=== PATIENT | female | born 1995 | race Caucasian/White ===

== ENCOUNTER → 2024-07-01 07:40 | Outpatient (CLI) | payer OTHER, MEDICAID, SELFPAY ==
--- NOTE | 2024-07-01 07:43 | DI.US.S_ITS ---
PROCEDURE: US OB >= 14 WEEKS FETUS INDICATIONS: ANATOMY SCAN OUTSIDE/PRIOR DATING DATA: Last menstrual period (LMP): 02/09/2024. LMP-based estimated date of delivery (DUC): 11/15/2024. The calculations are made using the clinical DUC of 11/15/2024. TECHNIQUE: Real-time scanning was performed of the fetus, with image documentation and biometric measurements. Endovaginal scanning: Not performed COMPARISON: None. FINDINGS: General: A single living intrauterine gestation is present. Presentation: Breech. Placenta: Placental position is anterior, without previa. Amniotic fluid index: 17.7 cm, normal range is 5-24 cm. Single deepest vertical pocket is 6.8 cm. heart rate: 150 beats per minute. Maternal cervical canal: 4.5 cm long. Normal lower limit is 2.5 cm. biometrics: Biparietal diameter: 4.7 cm, 20 weeks 2 days Head circumference: 17.2 cm, 19 weeks 5 days Abdominal circumference: 15.3 cm, 20 weeks 4 days Femur length: 3.3 cm, 20 weeks 1 day Clinically estimated gestational age: 20 weeks 3 days Composite gestational age from present scan: 20 weeks 1 day Estimated weight and percentile: 345 g, 38th percentile. Anatomic survey: Neuro: Ventricles are non-dilated at less than 10 mm. Cisterna magna is normal at 3-11 mm. Cerebellum is normal in size and morphology. Nuchal skin fold: Normal at less than 6 mm between 14-21 weeks gestational age. Face: Nose and lips, facial profile are normal. Spine: No evidence for spina bifida. Heart: 4-chambered heart is present, with normal ventricular outflow tracts. Left ventricle echogenic focus. Diaphragm: Diaphragm is intact. Stomach: Left-sided stomach is present. Kidneys: No hydronephrosis. Normal is less than 5 mm in 2nd trimester, less than 7 mm in 3rd trimester. Cord: 3-vessel cord has orthotopic insertion. Bladder: Normal in size. Extremities: All 4 extremities identified. IMPRESSION: 1. Barker living intrauterine at 20 weeks 1 day based on today's ultrasound. Concordant with clinical dating. Fetus is in the 38th percentile for weight. 2. Normal placenta and amniotic fluid. 3. Left ventricle echogenic focus. In the absence of other abnormalities this is likely of no clinical significance. Recommend clinical correlation. Otherwise normal and complete anatomic survey. We strive to produce accurate, complete, and clear reports of imaging services. To assist us in improving patient care, this report was composed using standard report templates and voice recognition software. Therefore, it may contain abnormal punctuation, insertions and/or omissions. Occasional wrong-word or sound-alike substitutions may occur. Though we review the report and make efforts to correct it, we do recommend that the report be read carefully in proper context to recognize any text inaccuracies. Dictated by: Leoncio Szymanski M.D. on 07/01/2024 at 17:25 Approved by: Leoncio Szymanski M.D. on 07/01/2024 at 17:29
== END ==
LOC: US 07:42
PROVIDERS: Referring Provider Nurse Practitioner Obstetrics & Gynecology; Visit Provider Nurse Practitioner Obstetrics & Gynecology
DX: Z34.92 Encounter for supervision of normal pregnancy, unspecified, second trimester (principal); Z3A.20 20 weeks gestation of pregnancy
CPT/HCPCS: 76811

== ENCOUNTER 2024-07-20 18:56 | Outpatient (CLI) | payer OTHER, MEDICAID, SELFPAY ==
[2024-07-20] MEDS: LACTATED RINGERS 1,000 ML 1000 ML IV (19:12)
[2024-07-20 19:31] LABS: Add Manual Diff / Slide Review NO; Appearance Urine UA CLEAR; Basophils Absolute Auto 0 /uL (0-100); Basophils Percent Auto 0.2 % (0-2); Bilirubin Urine UA NEGATIVE (NEGATIVE); Color Urine UA YELLOW; Eosinophils Absolute Auto 0 /uL (0-450); Eosinophils Percent Auto 0.3 % (2-4); Glucose Urine UA NEGATIVE (Negative); Hematocrit 39.5 % (36-46); Hemoglobin 13.1 g/dL (12.0-16.0); Ketones Urine UA NEGATIVE (NEGATIVE); Leukocyte Esterase Urine UA 1+ (NEGATIVE); Lymphocytes Absolute Auto 2200 /uL (1100-4500); Lymphocytes Percent Auto 20.4 % (25-40); Mean Corpuscular HGB Conc 33.1 % (30-36); Mean Corpuscular Hemoglobin 28.9 PG (26-34); Mean Corpuscular Volume 87.3 fL (80-100); Monocytes Absolute Auto 1100 /uL (0-900); Monocytes Percent Auto 9.9 % (3-14); Neutrophils Absolute Auto 7600 /uL (1500-7000); Neutrophils Percent Auto 69.2 % (50-75); Nitrite Urine UA NEGATIVE (Negative); Occult Blood Urine UA NEGATIVE (Negative); Platelet Count 232 X10^3/uL (150-400); Protein Urine UA NEGATIVE (Negative); Red Blood Cell Count 4.53 X10^6/uL (4.0-5.2); Red Cell Distribution Width 15.6 % (11.6-14.8); Specific Gravity Urine UA <=1.005 (1.000-1.035); Urobilinogen Urine UA 0.2 E.U./dL (0.2)
[2024-07-20 19:32] LABS: Urine Volume 10mL (spun)
[2024-07-20 19:40] LABS: Alanine Aminotransferase 49 IU/L (<35); Albumin 4.4 g/dL (3.5-5.0); Albumin Globulin Ratio 1.3 (1.0-2.8); Alkaline Phosphatase 80 U/L (38-126); Aspartate Aminotransferase 58 IU/L (14-36); BUN Creatinine Ratio 8.6 (6-22); Bilirubin Total 0.4 mg/dL (0.2-1.3); Blood Urea Nitrogen 6 mg/dL (7-17); Calcium 8.8 mg/dL (8.4-10.2); Carbon Dioxide 21 mmol/L (22-32); Chloride 105 mmol/L (98-107); Estimated Glomerular Filt Rate > 60 mL/min (>60); Globulin 3.4 g/dL (1.7-4.1); Glucose 69 mg/dL (70-100); HEMOLYSIS < 15 (0-50); Potassium 3.3 mmol/L (3.4-5.1); Sodium 135 mmol/L (137-145); Total Protein 7.8 g/dL (6.3-8.2)
[2024-07-20 19:41] LABS: Bacteria Urine Moderate (10-30); RBC Urine None Seen (0-5/HPF); Squamous Epithelial Cell Urine 1-5 /HPF (0-5/HPF); WBC Urine 0-1/HPF (0-5/HPF)
[2024-07-20 19:42] LABS: Culture Indicated Urine Specimen Cultured
--- NOTE | 2024-07-20 19:51 | PM.OBTRLD ---
Visit Information Visit Information Date of evaluation: 07/20/24 Primary OB Provider: Rosetta Felipe On-call OB Provider: Rosetta Felipe Reason for Evaluation: Yes other Comments/Additional reasons for admission: 28YO @ 23wks 1 day by LMP concordant with 8wk US presents for evaluation of diarrhea x 36 hours. Food and fluid are immediately coming out the other end and she is feeling weak and tired and worried about how her baby is doing. No vomiting or fever. No one else around her has the same sx and she thinks it is food poisoning. Uncomplicated care with CNMs. Vital Signs Vital Signs: BP 114/68, HR 83, RR 18, T 36.5F Temporal [facility] Surgical History (Updated 07/24/24 @ 14:36 by Rosetta Felipe CNM) H/O wisdom tooth extraction History of repair of anterior cruciate ligament of left knee Hx of tonsillectomy Review of Systems Constitutional Constitutional: Reports lethargy and Reports weakness Cardiovascular Cardiovascular: Reports system reviewed and no additional complaints, except as documented Respiratory Respiratory: Reports system reviewed and no additional complaints, except as documented Gastrointestinal Gastrointestinal: Reports as per HPI and Reports loose stools Neurologic Neurologic: Reports weakness Exam Vital Signs (past 8 hours): see above Const General: cooperative, well developed and well groomed Nutritional Appearance: average body habitus and well nourished Orientation: alert, awake and oriented x3 Resp Effort & Inspection: normal respiratory effort and able to speak in complete sentences Cardio Rate: regular rate Rhythm: regular rhythm Objective Labs 07/20/24 19:08 07/20/24 19:08 Labs: Laboratory Results - last 24 hr 07/20/24 19:08 WBC 11.0 RBC 4.53 Hgb 13.1 Hct 39.5 MCV 87.3 MCH 28.9 MCHC 33.1 RDW 15.6 H Plt Count 232 Neut % (Auto) 69.2 Lymph % (Auto) 20.4 L [place] % (Auto) 9.9 Eos % (Auto) 0.3 L Baso % (Auto) 0.2 Neut # (Auto) 7600 H Lymph # (Auto) 2200 [place] # (Auto) 1100 H Eos # (Auto) 0 Baso # (Auto) 0 Sodium 135 L Potassium 3.3 L Chloride 105 Carbon Dioxide 21 L BUN 6 L Creatinine 0.70 Estimated GFR > 60 BUN/Creatinine Ratio 8.6 Glucose 69 L Calcium 8.8 Total Bilirubin 0.4 AST 58 H ALT 49 H Alkaline Phosphatase 80 Total Protein 7.8 Albumin 4.4 Globulin 3.4 Albumin/Globulin Ratio 1.3 Urine Color Yellow Urine Appearance Clear Urine pH 6.0 Ur Specific Bennett <=1.005 Urine Protein Negative Urine Glucose (UA) Negative Urine Ketones Negative Urine Occult Blood Negative Urine Nitrate Negative Urine Bilirubin Negative Urine Urobilinogen 0.2 Ur Leukocyte Esterase 1+ H Urine RBC None seen Urine WBC 0-1/hpf Ur Squamous Epith Cells 1-5 /hpf Urine Bacteria Moderate (10-30) H Ur Culture Indicated? Specimen cultured Vol Urine Centrifuged 10ml (spun) Evaluation Evaluation Baseline heart rate: 140 Comments: no contractions membranes intact Diagnosis, Plan/Disposition Final Diagnosis (1) Diarrhea of presumed infectious origin: Status: Acute Plan/Disposition Plan: Reassurance of normal FHR and labs given. No concern for acute dehydration. Will repeat UA and CMP at next PN visit. OB Disposition: home
== END 2024-07-20 20:23 | disposition home or self-care (01) ==
LOC: LABOR 20:12 → OB 07-22 11:44
PROVIDERS: Referring Provider Nurse Practitioner Obstetrics & Gynecology; Visit Provider Nurse Practitioner Obstetrics & Gynecology
DX: O26.892 Other specified pregnancy related conditions, second trimester (principal); R19.7 Diarrhea, unspecified; Z3A.23 23 weeks gestation of pregnancy
CPT/HCPCS: 80053; 81001; 85025; 87086; 96360; G0378; G0379

== ENCOUNTER 2024-11-10 19:36 | Outpatient (CLI) | payer OTHER, SELFPAY ==
--- NOTE | 2024-11-10 19:49 | P.TNLD_ITS ---
Visit Information Visit Information Date of evaluation: 11/10/24 Comments/Additional reasons for admission: 29YO @ 39wks 2days here for evaluation of ROM. Noticed leaking clear fluid at 1720 and has continued to notice large amounts since then. Contractions started on the drive up from [place], but are mild and irregular. +FM. No vaginal bleeding. Uncomplicated care with CNMs. Planning a no intervention . Supportive partner, Will is at her side. Vital Signs Vital Signs: BP 133/76, HR 85bpm, T 36.6C Temporal PFSH Surgical History (Updated 07/24/24 @ 14:36 by Rosetta Felipe CNM) H/O wisdom tooth extraction History of repair of anterior cruciate ligament of left knee Hx of tonsillectomy Social History (Updated 11/10/24 @ 20:30 by Rosetta Felipe CNM) marital status: unmarried,living together household members: significant other lives independently: Yes housing: house education level: college occupational status: employed Review of Systems Review of Systems ROS: Yes All systems reviewed with the patient and are negative except as otherwise documented Exam Vital Signs (past 8 hours): see above Presentation: vertex Evaluation Evaluation Baseline heart rate: 140 Variability: Moderate (11-25) monitor accelerations: Present Monitor Decelerations: Absent Contraction Frequency (minutes): 0 Category of Tracing: Reactive Cervical dilation (cm): 1.5 Cervical effacement (%): 75 station: -2 Comments: gross SROM noted Diagnosis, Plan/Disposition Final Diagnosis (1) premature rupture of membranes: Status: Acute Plan/Disposition Plan: Counseled on term PROM and options for active vs. expectant management of labor. Sherice elected expectant management and is planning to stay the night at the [facility]. Also counseled her that [facility] L&D is currently on divert and transfer of care is a possibility. She declines to transfer to [facility] with her CNM and is aware that transfer to [facility] or another hospital would entail transferring care to an alternate provider. Anticipatory guidance given for PROM. Encouraged rest. Reviewed reasons to return or call sooner. Will call patient when a labor room is available.
[2024-11-10 20:26] VITALS: BP 133/76; PULSE 85; RESP 17; TEMP 36.6
== END 2024-11-10 20:30 | disposition home or self-care (01) ==
LOC: LABOR 19:41 → OB 11-11 11:08
PROVIDERS: Referring Provider Nurse Practitioner Obstetrics & Gynecology; Visit Provider Nurse Practitioner Obstetrics & Gynecology
DX: O42.92 Full-term premature rupture of membranes, unspecified as to length of time between rupture and onset of labor (principal); Z3A.39 39 weeks gestation of pregnancy
CPT/HCPCS: 59025; G0378; G0379

== ENCOUNTER 2024-11-11 05:52 | Inpatient (IN) | payer OTHER, SELFPAY ==
[2024-11-11 06:30] VITALS: BP 117/60
--- NOTE | 2024-11-11 06:30 | P.HPOB_ITS ---
OB HPI Date/Time Date of admission: 11/11/24 Date Patient Seen: 11/11/24 Time Patient Seen: 06:30 History of Present Condition Chief complaint: labor : 1 Para: 0 Estimated Date of Delivery: 11/15/24 Estimated Gestational Age (weeks): 39.3 Narrative: Sherice Franco is a 29 year old female @ 39wks 3days by LMP concordant with 8wk US presents for labor admission s/p PROM. Leaking clear fluid since 1720 last night. Was evaluated in triage and elected expectant management of PROM. Was able to get some sleep at [facility] until 0200 when contractions became stronger. Now breathing through moderate contractions every 6-7 minutes. Small bloody discharge throughout the night. Uncomplicated care with CNMs. Planning low intervention with hypnobirthing techniques. Partner, Will, is supportive at her side. History of Present care: good care, initiated at week # (8), number of visits (9) and pounds weight gain (44) Dating criteria: LMP confirmed by 1st trimester US Ultrasounds: normal mid trimester US Preadmission Labs Blood type: A (+) positive -: Antibody screen: negative, GBS status: negative, HBsAG: negative, HIV: negative and RPR/VDLR: negative -: Chlamydia screen: not detected and Gonorrhea screen: not detected -: Rubella: immune and Varicella: immune HCT: 34.7 HCAB: negative Cell-free DNA: Negative x3 1 hr GTT: 7 Evaluation Evaluation Baseline heart rate: 140 Variability: Moderate (11-25) monitor accelerations: Present Monitor Decelerations: Variable Contraction Frequency (minutes): 7 Uterine Contraction Intensity: Mild Status: Category ll Dilation (cm): 4 Effacement (%): 90 Dilation: 3-4 cm Effacement: >/=80% station: -2 Position of cervix: posterior Consistency: soft Shannon score: 8 PFSH Surgical History H/O wisdom tooth extraction History of repair of anterior cruciate ligament of left knee Hx of tonsillectomy Social History marital status: unmarried,living together household members: significant other lives independently: Yes housing: house education level: college occupational status: employed Smoking Status: Never smoker Meds Home Medications and Allergies Home Medications Medication Instructions Recorded Confirmed Type 1 tab PO DAILY 11/10/24 11/11/24 History Allergies Allergy/AdvReac Type Severity Reaction Status Date / Time codeine AdvReac Unknown Vomiting Verified 11/10/24 21:21 Review of Systems Review of Systems ROS: Yes All systems reviewed with the patient and are negative except as otherwise documented OB Exam Vital signs Blood Pressure: 117/60 Pulse Rate: 76 Respiratory Rate: 17 Temperature: 98.6 F Resp Effort & Inspection: normal respiratory effort and able to speak in complete sentences Auscultation: clear to auscultation bilaterally Cardio Rate: regular rate Rhythm: regular rhythm Heart Sounds: S1 normal and S2 normal Presentation: vertex Objective Labs 11/11/24 07:00 Assessment and Plan Assessment and Plan Assessment and Plan narrative: A: Term nullipara Early Labor PROM x 13 hours without sx of infection Antibiotics not indicated Cat II FHR- overall reassuring P: Admit, routine labor orders. Continue expectant management of PROM. Labor support PRN. Reassess in 4 hours or sooner, PRN. Time-Based Coding :: [TOTAL MINUTES] spent with patient and on the chart (including review of chart, obtaining history, exam, reviewing outside data, placing orders, documenting exam and treatment plan, and counseling patient) on [DATE].
[2024-11-11 06:44] VITALS: BP 117/60; PULSE 76; RESP 17; TEMP 37
[2024-11-11 07:33] LABS: Add Manual Diff / Slide Review NO; Basophils Absolute Auto 0 /uL (0-100); Basophils Percent Auto 0.1 % (0-2); Eosinophils Absolute Auto 100 /uL (0-450); Eosinophils Percent Auto 0.6 % (2-4); Hematocrit 33.8 % (36-46); Hemoglobin 11.3 g/dL (12.0-16.0); Lymphocytes Absolute Auto 3300 /uL (1100-4500); Lymphocytes Percent Auto 19.7 % (25-40); Mean Corpuscular HGB Conc 33.3 % (30-36); Mean Corpuscular Hemoglobin 28.9 PG (26-34); Mean Corpuscular Volume 86.8 fL (80-100); Monocytes Absolute Auto 900 /uL (0-900); Monocytes Percent Auto 5.2 % (3-14); Neutrophils Absolute Auto 12500 /uL (1500-7000); Neutrophils Percent Auto 74.4 % (50-75); Platelet Count 226 X10^3/uL (150-400); Red Cell Distribution Width 13.9 % (11.6-14.8); White Blood Cell Count 16.8 X10^3/uL (4.5-11.0)
--- NOTE | 2024-11-11 10:39 | PM.OBPNLAB ---
Date/Time Date Patient Seen: 11/11/24 Time Patient Seen: 10:15 Pain Control Pain control: tolerating well Comments: Sherice is in the shower now; tried the tub and got some rest earlier. Contractions are more intense when she's standing and moving versus lying down or resting. Feels that she is coping well. VS: 121/74, 73 bpm, 97.6 F Pelvic Exam Dilation (cm): 4 Effacement (%): 100 station: 0 Amniotic membrane status: Ruptured (x 17 hours, clear fluid) Comments: Cervix is soft & mid-position Contractions Contraction pattern: Irregular Contraction intensity: Moderate Status status: Category ll Comments: Intermittent auscultation: 130 bpm, no increases or decreases noted. Assessment and Plan Comments: 29 year old at 39w3d by LMP GBS neg PROM, afebrile Early labor FHR reassuring by IA Recommend nipple stimulation Review little cervical change in dilation, but good change in other aspects, still in early labor Recommend continuing to alter activity and rest, be sure to eat & drink & void. Re-evlauate in 4 hours.
--- NOTE | 2024-11-11 14:01 | PM.OBPNLAB ---
Date/Time Date Patient Seen: 11/11/24 Time Patient Seen: 13:35 Pain Control Pain control: tolerating well (hypnobirthing with EMDR/Reiki) Comments: Sherice is working harder with contractions, feeling some urges to push with contractions but only at the peak. Comfortable on her hands and knees with the CUB, TENS unit on her back, support from Will and RNs. Desires exam now. Pelvic Exam Dilation (cm): 6 Effacement (%): 100 station: 0 Amniotic membrane status: Ruptured (x 20 hours, clear fluid) Comments: Baby rotating from OT to FIONA. Contractions Contraction frequency (min): 2 (1-4) Contraction duration (min): 1 Contraction pattern: Regular Contraction intensity: Moderate Status Comments: Intermittent auscultation Baseline: 135 bpm with regular rhythm Increases and decreases: none noted Assessment and Plan Comments: at 39w3d Active labor FHR reassuring by IA GBS neg Continue intermittent auscultation. Continue laboring with support, recommend frequent position changes. Provided reassurance and guidance about not pushing until her body is actively doing it without her help and can do an exam at that time. Recheck in 4 hours or sooner PRN Anticipate NSVB
--- NOTE | 2024-11-11 17:55 | PM.AN.REGBLK ---
[facility] Pre-procedure PMH/ROS narrative: Healthy 29yr old requesting epidural/cse for labor pain. PSH/Anesthesia history narrative: Tonsillectomy, ACL and [place] teeth ASA Class: II Labs: Hct 33.8 % (36-46) L 11/11/24 07:00 Plt Count 226 X10^3/uL (150-400) 11/11/24 07:00 Medications: Current Medications Generic Name Dose Route Start Last Admin Trade Name Freq PRN Reason Stop Dose Admin Calcium Carbonate 1,000 mg 11/11/24 06:28 Calcium Carbonate 500 Mg Tab PO Q2HR PRN Dyspepsia Carboprost Tromethamine 250 mcg 11/11/24 06:28 Carboprost 250 Mcg/Ml Ampul IM Q90M PRN Bleeding Fentanyl 100 mcg 11/11/24 06:28 Fentanyl 100 Mcg/2 Ml Inj IV Q1H PRN Pain, Severe (7-10) Oxytocin/Lactated Ringer's 30 unit in 500 mls @ 200 mls/hr 11/11/24 06:28 Oxytocin Premix IV CONT PRN Bleeding Protocol Tranexamic Acid 1,000 mg/ 100 mls @ 600 mls/hr 11/11/24 06:28 Sodium Chloride IV NOW PRN Bleeding Oxytocin/Lactated Ringer's 30 unit in 500 mls @ 2 mls/hr 11/11/24 06:30 Oxytocin Premix IV TITRATE LOGAN Protocol 2 MILLIUNIT/MIN Lidocaine HCl 20 ml 11/11/24 06:28 Lidocaine 1% 20 Ml INJ INTRA-OP PRN Post Delivery Methylergonovine Maleate 0.2 mg 11/11/24 06:28 Methylergonovine 0.2 Mg Tablet PO Q6HR PRN Heavy Bleeding Methylergonovine Maleate 0.2 mg 11/11/24 06:28 Methylergonovine 0.2 Mg/Ml Vial IM NOW PRN Bleeding Mineral Oil 30 ml 11/11/24 06:28 Mineral Oil 30 Ml Udc TOP PRN PRN Version Misoprostol 800 mcg 11/11/24 06:28 Misoprostol 200 Mcg Tablet VA NOW PRN Bleeding Misoprostol 400 mcg 11/11/24 06:28 Misoprostol 200 Mcg Tablet SL NOW PRN Bleeding Naloxone HCl 0.2 mg 11/11/24 06:28 Naloxone 0.4 Mg/Ml Vial IV Q2MIN PRN Opiate Reversal Ondansetron HCl 4 mg 11/11/24 06:28 Ondansetron 4 Mg/2 Ml Inj IV Q4HR PRN Nausea And Vomiting Oxytocin 10 unit 11/11/24 06:28 Oxytocin 10 Unit/Ml Vial IM NOW PRN Bleeding Allergies: Allergies Allergy/AdvReac Type Severity Reaction Status Date / Time codeine AdvReac Unknown Vomiting Verified 11/10/24 21:21 Procedure Insertion date: 11/11/24 Insertion time: 17:24 Prep/Local: 1% lidocaine (Chloroprep) Interspace: L3-4 Patient position: sitting Needle: 18 gauge Beceem Communicationstead (27g Tien) Loss of resistance with: saline SARAH at (cm): 6 Catheter placed at SKIN (cm): 14 Catheter in SPACE (cm): 8 Insertion: No CSF, No Blood, No Paresthesia with insertion, No Paresthesia with injection and No Test dose reaction Initial Medications TEST DOSE time: : TEST DOSE: 1.5% lidocaine with epinephrine 1:200k (mL): 3 BOLUS DOSE time: :23 BOLUS DOSE (mL): 1 BOLUS DOSE med: 0.25% bupivacaine Infusion INFUSION: 0.125% bupivacaine and with fentanyl 2 mcg/mL Initial rate (mL/hr): 10 Subsequent interventions: 0.25% bupivicaine 7cc given at 1915 Post-procedure Anesthesia date START: 11/11/24 Anesthesia time START: 17:01 Anesthesia date END: 11/11/24 Anesthesia time END: 19:51 Post-procedure Anesthesia Assessment: Yes CV function: HR/BP stable, Yes Resp function: RR/sat/airway adequate, Yes Post-op hydration adequate, Yes Pain control adequate, Yes Nausea & vomiting absent, Yes Temperature > 36 C and Yes Mental status appropriate
[2024-11-11] MEDS: LACTATED RINGERS 1,000 ML 100 ML IV (17:57)
--- NOTE | 2024-11-11 18:04 | PM.OBPNLAB ---
Date/Time Date Patient Seen: 11/11/24 Time Patient Seen: 18:05 Pain Control Pain control: epidural Comments: CNM assumed care of patient at 1615. Sherice was in the shower, coping well, but considering an epidural. CE was performed at that time 8cm/100%/-1 and Sherice decided to proceed with an epidural. Epidural was placed with adequate pain relief. Now resting in bed, hoping for a nap. Pelvic Exam Dilation (cm): 8 Effacement (%): 100 station: -1 Amniotic membrane status: Ruptured (x 23 hours without sx of infection) Contractions Contraction frequency (min): 5 (2-7) Contraction duration (min): 2 Contraction pattern: Regular Contraction intensity: Moderate Status status: Category ll Heart Rate Baseline: 125 Monitor Accelerations: Present Monitor Decelerations: Early and Variable Monitor Variability: Moderate Assessment and Plan Assessment: active labor Plan: continuous present management Comments: Reassess in 4hours or sooner, PRN. Will consider pitocin augmentation if contractions continue to space.
[2024-11-11] MEDS: OXYTOCIN PREMIX 30 UNIT/500 ML PLAST..BAG IV (18:56)
--- NOTE | 2024-11-11 20:17 | PM.OBPRVD ---
Events: Prolonged Rupture Membrane Labor & Delivery Delivery date: 11/11/24 Delivery Time: 19:51 Cervical ripening method: none Induction method: none Delivery augmentation: pitocin (max dose 3mu/min) Delivery monitor: external FHT and external uterine Route of delivery: L&D Laceration Description: Labial (left, split) Delivery repair: chromic (3.0) Quantitative Blood Loss: 10 Anesthesia Type: Epidural Narrative: Sherice progressed rapidly after pitocin augmentation was initiated (max dose 3mu/min). She felt increased pain in her right hip, received an epidural bolus, was examined and found to be C/C/0. Coaching and strong maternal efforts led to rapid descent of vertex. NSVB of a vigorous baby boy in HAYDEE position. There was a single, loose nuchal cord which was manually reduced. The shoulders were transverse and released with strong maternal effort and McRobert's maneuver. [place] was placed on maternal abdomen for drying and skin to skin. Apgars 6/9. 30 units of pitocin in 500mL LR was started at 250mL/hr for AMTSL. After cessation of pulsation, the cord was double clamped by SNM and cut by FOB. Cord blood sample was collected to hold. Gentle cord traction and a single maternal push led to spontaneous, Schultze delivery of an apparently intact placenta, membranes and 3VC. Fundus immediately firm and bleeding scant. Perineum inspected and intact, superficial left labial laceration was repaired with 3.0 chroic for good approximation and hemostasis. QBL 10mL. Both mother and baby stable and skin to skin as I left the room. Baby 1: Infant gender: Male Presentation: vertex Position: Left Occiput Anterior Placenta delivery description: Spontaneous Cord Vessel Description: 3 Vessels, Nuchal Cord and Loose score (1 min): 6 score (5 min): 9 weight: 2.97 kg Plan for aftercare: Routine care
[2024-11-11] MEDS: DERMOPLAST SPRAY 20% 60 ML 1 SPRAY TOP (20:53)
[2024-11-11] MEDS: WITCH HAZEL/GLYCERIN PADS 1 EACH TOP (20:53)
[2024-11-11] MEDS: LANOLIN OINT 7 GM 1 APPLIC TOP (20:53)
[2024-11-11] MEDS: KETOROLAC 30 MG/ML VIAL IV (20:54)
[2024-11-12] MEDS: ACETAMINOPHEN 325 MG TABLET 650 MG PO ×3 (00:33→12:11)
[2024-11-12] MEDS: IBUPROFEN 600 MG TABLET PO ×2 (06:10→12:11)
--- NOTE | 2024-11-12 13:24 | PM.OBDS.1 ---
Discharge Providers Provider Date of admission: 11/11/24 05:52 Discharge Date: 11/12/24 Primary care physician: Doctor Mariam MD Consults: 11/12/24 20:16 Consult to Chocolate Packer Routine Comment: Discharge provider: Sangeeta Cotto CNM, ARNP Summary Hospital Course Date Patient Seen: 11/12/24 Time Patient Seen: 13:24 Diagnoses: O80 Hospital Course: Arrived to labor with PROM and 4 cm, proceeded to labor well until requested epidural at 8 cm. NSVB of baby boy. Peripartum Data Delivery Method: Natural Vaginal 1: Gender: Male Disposition of : home Status at Discharge Cognitive/behavioral status at discharge: oriented and calm Functional status at discharge: independent ambulation Overall status at discharge: patient is progressing back to baseline Time Spent with Patient Time attestation: Total time spent providing and/or coordinating discharge services: Time spent: Less than 30 minutes Specific discharge activities: discharge teaching Objective Labs 11/11/24 07:00 Exam Other: Fundus firm at U, midline. Lochia scant Perineum intact with minimal edema Discharge Plan Discharge Plan Patient Disposition: Home Discharge orders & Medications Prescriptions: Continued 1 tab PO DAILY Medication counseling provided by Pharmacist: No Follow up/Referrals: Sangeeta Cotto CNM, ARNP [[employer] Professor] - 2 Weeks (2 and 6 week [facility] [place] Doctor Becerra MD [Primary Care Provider] - Diet/Activity/Treatments Diet: Diet as Tolerated and Regular Diet comment: increase fiber and fluid to support healing and stool Activity: low scanlon for at least 2 weeks. No shipping, vacuuming, lifting >10 lbs for 2 weeks. Cold/Heat Therapy: as needed for comfort Skin/Wound/Dressing Care Skin care: usual care Report to your healthcare provider any signs of infection, such as:: chills, fever, unusual drainage and unusual redness Visit Report/Discharge Packet Instructions: DI for Depression Stand Alone Forms: Discharge: Care, Patient Portal/API, Stroke Signs & Symptoms Discharge Data Primary Care Provider: Doctor Mariam
[2024-11-12 13:58] VITALS: BP 117/60; PULSE 76; RESP 17; TEMP 37
== END 2024-11-12 14:35 | disposition home or self-care (01) | DRG 560 ==
PROVIDERS: Admitting Provider Nurse Practitioner Obstetrics & Gynecology; Referring Provider Nurse Practitioner Obstetrics & Gynecology; Visit Provider Nurse Practitioner Obstetrics & Gynecology
DX: O42.02 Full-term premature rupture of membranes, onset of labor within 24 hours of rupture (principal); O76 Abnormality in fetal heart rate and rhythm complicating labor and delivery; Z3A.39 39 weeks gestation of pregnancy; Z37.0 Single live birth
CPT/HCPCS: 36415; 59025; 59050; 85025; 86850; 86900; 86901; G0379; J1885; J2590